=== PATIENT | female | born 1990 | race African-American/Black ===

== ENCOUNTER 2016-09-22 01:35 | Emergency (ER) | payer MEDICAID ==
[~2016-09-22] VITALS: Ht 157.5 cm; Wt 122.5 kg
[2016-09-22 01:45] VITALS: BP 154/97
== END 2016-09-22 02:51 | disposition left against medical advice (07) ==
LOC: ER 01:40
DX: R00.2 Palpitations (principal); Z53.21 Procedure and treatment not carried out due to patient leaving prior to being seen by health care provider
CPT/HCPCS: 93005

== ENCOUNTER → 2018-04-04 | Outpatient (CLI) | payer MEDICAID | END | disposition home or self-care (01) | LOC: Rad HDHVI 14:27 | PROVIDERS: ATTEND Internal Medicine | DX: I07.1 Rheumatic tricuspid insufficiency (principal); Z88.0 Allergy status to penicillin | CPT/HCPCS: 93306 ==

== ENCOUNTER → 2018-09-25 | Outpatient (CLI) | payer MEDICAID | END | disposition home or self-care (01) | LOC: Rad HDHVI 14:09 | PROVIDERS: ATTEND Internal Medicine Cardiovascular Disease | DX: R07.89 Other chest pain (principal); E78.5 Hyperlipidemia, unspecified; R63.8 Other symptoms and signs concerning food and fluid intake | CPT/HCPCS: 78452; 93017; 96374; A9500 ==